=== PATIENT | male | born 1990 | race Caucasian/White ===

== ENCOUNTER 2017-08-22 10:32 | Emergency (ER) | payer MEDICAID, OTHER ==
[~2017-08-22] VITALS: Ht 185.4 cm; Wt 98.9 kg
[2017-08-22 10:38] VITALS: BP_SYST 119
[2017-08-22 11:25] LABS: BILIRUBIN,URINE 1+ (NEGATIVE); BLOOD, URINE NEGATIVE (NEGATIVE); CLARITY/URINE CLEAR (CLEAR); COLOR,URINE YELLOW (YELLOW); GLUCOSE,URINE NEGATIVE (NEGATIVE); KETONES,URINE 1+ (NEGATIVE); LEUKOCYTE ESTERASE ,URINE NEGATIVE (NEGATIVE); NITRITE, URINE NEGATIVE (NEGATIVE); PH,URINE 6.5 (5.0-8.0); PROTEIN URINE TRACE (NEGATIVE)
[2017-08-22 11:28] LABS: BARBITURATE, URINE NEGATIVE (NEG <=200); BENZODIAZEPINE, URINE POSITIVE (NEG <=150); CANNABINOID, URINE POSITIVE (NEG <=50); COCAINE, URINE NEGATIVE (NEG <=150); METHAMPHETAMINES SCREEN,URINE POSITIVE (NEG <=500); OPIATE, URINE NEGATIVE (NEG <=100); PHENCYCLIDINE SCREEN,URINE NEGATIVE (NEG <=25); UR TRICYCLIC ANTIDEPRESSANTS NEGATIVE (NEG <=300); URINE AMPHETAMINE NEGATIVE (NEG <=500); URINE METHADONE NEGATIVE (NEG <=200); URINE OXYCODONE SCREEN NEGATIVE (NEG <=100); URINE PROPOXYPHENE SCREEN NEGATIVE (NEG <=300)
[2017-08-22 11:45] LABS: BACTERIA,URINE FEW /HPF (None Seen); RBC,URINE 0-3 /HPF (0-3); WBC,URINE 0-3 /HPF (0-3)
[2017-08-22 11:46] LABS: MUCUS,URINE 2+ /LPF (None Seen)
[2017-08-22] MEDS ORDERED: KETOROLAC TROMETHAMINE 60 MG/2 ML VIAL IM ONE (14:15)
== END 2017-08-22 12:36 | disposition left against medical advice (07) ==
LOC: SED 10:32
DX: F41.9 Anxiety disorder, unspecified (principal); Z53.21 Procedure and treatment not carried out due to patient leaving prior to being seen by health care provider
CPT/HCPCS: 80307; 81000-TC; 99281

== ENCOUNTER 2018-09-14 15:59 | Emergency (ER) | payer MEDICAID ==
[~2018-09-14] VITALS: Ht 185.4 cm; Wt 106.6 kg
[2018-09-14 16:00] VITALS: BP_SYST 114
[2018-09-14 16:35] VITALS: BP_SYST 116
== END 2018-09-14 16:35 | disposition home or self-care (01) ==
LOC: SED 15:59
DX: L91.8 Other hypertrophic disorders of the skin (principal); J45.909 Unspecified asthma, uncomplicated
CPT/HCPCS: 99281

== ENCOUNTER 2019-04-28 08:27 | Emergency (ER) | payer MEDICAID ==
[~2019-04-28] VITALS: Ht 185.4 cm; Wt 102.1 kg
[2019-04-28 08:39] VITALS: BP_SYST 102
[2019-04-28 09:19] LABS: BASOPHILS # (AUTO) 0.1 K/uL (0.0-0.2); BASOPHILS % (AUTO) 0.7 % (0.0-2.0); EOSINOPHILS # (AUTO) 0.4 K/uL (0.0-0.4); EOSINOPHILS % (AUTO) 5.3 % (0.0-4.0); HEMOGLOBIN 15.1 g/dL (14.0-18.0); LYMPHOCYTES # (AUTO) 1.3 K/uL (1.0-5.5); LYMPHOCYTES % (AUTO) 18.9 % (20.5-51.5); MEAN CORPUSCULAR HEMOGLOBIN 30 pg (27-31); MEAN CORPUSCULAR HGB CONC 34 % (32-36); MEAN CORPUSCULAR VOLUME 88 fL (79.0-98.0); MONOCYTES # (AUTO) 0.7 K/uL (0.0-1.0); MONOCYTES % (AUTO) 10.5 % (1.7-9.3); NEUTROPHILS # (AUTO) 4.6 K/uL (1.8-7.7); NEUTROPHILS % (AUTO) 64.6 % (40.0-70.0); PLATELET COUNT (AUTO) 271 K/uL (130-430); RED BLOOD CELL COUNT(AUTO) 5.03 MIL/uL (4.2-6.2); RED CELL DISTRIBUTION WIDTH 13.4 % (9.0-15.0); WHITE BLOOD COUNT (AUTO) 7.1 K/uL (4.8-10.8)
[2019-04-28 09:36] LABS: CALCIUM 8.6 mg/dL (8.4-11.0); CREATININE 0.81 mg/dL (0.55-1.30); POTASSIUM 3.5 mmol/L (3.5-5.1)
[2019-04-28 09:40] LABS: ALBUMIN 3.7 g/dL (3.4-4.8); C-REACTIVE PROTEIN QUANT 0.5 mg/dL (0-0.5); PROTHROMBIN TIME 10.2 SECS (9.5-12.5); TOTAL BILIRUBIN 0.6 mg/dL (0.0-1.0); URIC ACID 6.1 mg/dL (2.4-7.0)
[2019-04-28 10:14] VITALS: BP_SYST 102
== END 2019-04-28 10:10 | disposition home or self-care (01) ==
LOC: SED 08:27
DX: S60.221A Contusion of right hand, initial encounter (principal); B00.89 Other herpesviral infection; J45.909 Unspecified asthma, uncomplicated; W18.40XA Slipping, tripping and stumbling without falling, unspecified, initial encounter; Y93.89 Activity, other specified; Y92.89 Other specified places as the place of occurrence of the external cause; Y99.8 Other external cause status
CPT/HCPCS: 36415; 80053; 84550-TC; 85025; 85610-TC; 85730-TC; 86140; 99284

== ENCOUNTER 2019-07-11 07:25 | Emergency (ER) | payer MEDICAID ==
[~2019-07-11] VITALS: Ht 185.4 cm; Wt 108.9 kg
[2019-07-11 07:25] VITALS: BP_SYST 120
--- NOTE | 2019-07-11 07:25 | NUR ---
BROUGHT BACK TO BED #8 AND TRIAGED. REPORT GIVEN TO LILI
--- NOTE | 2019-07-11 07:38 | NUR ---
ER Dr. Lopez at bedside examining patient.
--- NOTE | 2019-07-11 07:40 | NUR ---
Patient presented to ER with L:eft Knee pain. Patient A&Ox4, ambulatory to ER, afebrile, pain10/10, denies N/V/D at this time. Patient states yesterday while pt was at work a box fell on left knee. This am. Patient states he aníbal up screaming in pain with nausea and emesis x1 prompting ER visit. Patient states he has a hx with left memiscus tear and left achilles tear.
[2019-07-11] MEDS ORDERED: KETOROLAC TROMETHAMINE 60 MG/2 ML VIAL IM ONE (07:45)
--- NOTE | 2019-07-11 07:49 | NUR ---
Patient to Radiology with staff via wheelchair.
[2019-07-11 09:13] VITALS: BP_SYST 120
--- NOTE | 2019-07-11 09:13 | NUR ---
Patient given written and verbal discharge instructions and verbalizes understanding. ER MD discussed with patient the results and treatment provided. Patient in stable condition. ID arm band removed. Rx of zofran, tramadol, motrin given. Patient educated on pain management and to follow up with PMD. Pain Scale 4/10 tolerable for pt. Opportunity for questions provided and answered. Medication side effect fact sheet provided.
[2019-07-11] MEDS ORDERED: ALBUTEROL SULFATE 0.083% 2.5 MG/3 ML VIAL.NEB INH ONE (14:40)
[2019-07-11] MEDS ORDERED: IPRATROPIUM BROM 0.5 MG/2.5 ML VIAL.NEB (ATROVENT) INH ONE (14:41)
== END 2019-07-11 09:13 | disposition home or self-care (01) ==
LOC: SED 07:25
DX: M25.562 Pain in left knee (principal); J45.909 Unspecified asthma, uncomplicated; W20.8XXA Other cause of strike by thrown, projected or falling object, initial encounter; Y93.89 Activity, other specified; Y92.69 Other specified industrial and construction area as the place of occurrence of the external cause; Y99.8 Other external cause status
CPT/HCPCS: 29505; 73564; 96372; 99283; J1885; J7613

== ENCOUNTER 2022-04-21 17:28 | Emergency (ER) | payer MEDICAID ==
[~2022-04-21] VITALS: Ht 185.4 cm; Wt 108.9 kg
[2022-04-21 17:39] VITALS: BP_SYST 106
[2022-04-21] MEDS ORDERED: DIPH-TET-PERTUS Vaccine 0.5 ML VIAL (ADACEL) I.M. ONE (18:30)
[2022-04-21] MEDS ORDERED: LIDOCAINE 1% 10 MG/ML, 20 ML MDV INJ ONE (18:30)
[2022-04-21] MEDS ORDERED: BACITRACIN 1 GM OINT TP ONE (18:30)
[2022-04-21 19:45] VITALS: BP_SYST 118
== END 2022-04-21 19:45 | disposition home or self-care (01) ==
LOC: SED 17:28
DX: S61.216A Laceration without foreign body of right little finger without damage to nail, initial encounter (principal); S61.218A Laceration without foreign body of other finger without damage to nail, initial encounter; S61.212A Laceration without foreign body of right middle finger without damage to nail, initial encounter; J45.909 Unspecified asthma, uncomplicated; W23.1XXA Caught, crushed, jammed, or pinched between stationary objects, initial encounter; Y93.89 Activity, other specified; Y92.89 Other specified places as the place of occurrence of the external cause; Y99.8 Other external cause status
CPT/HCPCS: 90715; 99283

== ENCOUNTER 2023-06-26 09:10 | Emergency (ER) | payer MEDICAID ==
[~2023-06-26] VITALS: Ht 185.4 cm; Wt 95.3 kg
[2023-06-26 09:29] VITALS: BP_SYST 141; PULSE 81; RESP 20; TEMP 97.6; O2SAT 97
[2023-06-26 11:04] VITALS: BP_SYST 140; PULSE 85; RESP 20; TEMP 97.5; O2SAT 97
[2023-06-26] MEDS ORDERED: TRAM50TA2 PO (11:05)
[2023-06-26] MEDS ORDERED: IBUP-1971 PO (11:05)
== END 2023-06-26 11:21 | disposition home or self-care (01) ==
LOC: SED 09:10
DX: S63.601A Unspecified sprain of right thumb, initial encounter (principal); J45.909 Unspecified asthma, uncomplicated; W22.09XA Striking against other stationary object, initial encounter; Y93.89 Activity, other specified; Y92.89 Other specified places as the place of occurrence of the external cause; Y99.8 Other external cause status
CPT/HCPCS: 73140-TC; 99283

== ENCOUNTER 2024-01-02 11:21 | Emergency (ER) | payer MEDICAID ==
[~2024-01-02] VITALS: Ht 185.4 cm; Wt 111.1 kg
[~2024-01-02 11:21] MED LIST: IBUP-1971 PO; TRAM50TA2 PO
[2024-01-02 11:35] VITALS: BP_SYST 144; PULSE 87; TEMP 97.5; O2SAT 98
[2024-01-02 11:49] LABS: BASOPHILS # (AUTO) 0.1 K/uL (0.0-0.2); BASOPHILS % (AUTO) 0.8 % (0.0-2.0); EOSINOPHILS # (AUTO) 0.4 K/uL (0.0-0.4); EOSINOPHILS % (AUTO) 5.8 % (0.0-4.0); HEMOGLOBIN 15.1 g/dL (14.0-18.0); LYMPHOCYTES # (AUTO) 2.1 K/uL (1.0-5.5); LYMPHOCYTES % (AUTO) 31.4 % (20.5-51.5); MEAN CORPUSCULAR HEMOGLOBIN 31 pg (27-31); MEAN CORPUSCULAR HGB CONC 35 % (32-36); MEAN CORPUSCULAR VOLUME 88 fL (79.0-98.0); MONOCYTES # (AUTO) 0.7 K/uL (0.0-1.0); NEUTROPHILS # (AUTO) 3.5 K/uL (1.8-7.7); PLATELET COUNT (AUTO) 344 K/uL (130-430); RED BLOOD CELL COUNT(AUTO) 4.91 MIL/uL (4.2-6.2); RED CELL DISTRIBUTION WIDTH 13.2 % (9.0-15.0); WHITE BLOOD COUNT (AUTO) 6.8 K/uL (4.8-10.8)
[2024-01-02 11:59] LABS: ANION GAP 9 (5-15); CALCIUM 9.4 mg/dL (8.4-11.0); CARBON DIOXIDE 28 mmol/L (23-29); CHLORIDE 105 mmol/L (98-107); CREATININE 0.99 mg/dL (0.55-1.30); GFR AFRICAN AMERICAN 112 mL/min (>90); GLUCOSE 98 mg/dL (74-106); POTASSIUM 3.7 mmol/L (3.5-5.1); SODIUM SERUM 142 mmol/L (136-145); UREA NITROGEN, BLOOD 18 mg/dL (8-21)
[2024-01-02 12:07] LABS: GFR NON AFRICAN-AMERICAN 93 mL/min (>90)
[2024-01-02] MEDS: IPRATROPIUM/ALBUTEROL SULFATE 3 ML AMPUL.NEB (DUONEB) INH ONE (12:22)
[2024-01-02] MEDS: METHYLPREDNISOLONE SOD SUCC 40 MG/ML VIAL IVP ONE (13:39)
[2024-01-02] MEDS: KETOROLAC TROMETHAMINE 30 MG VIAL IVP ONE (13:42)
[2024-01-02] MEDS ORDERED: ALBMDI INH (13:48)
[2024-01-02] MEDS ORDERED: PRED20TA PO (13:48)
[2024-01-02] MEDS ORDERED: IBUP-1969 PO (13:48)
[2024-01-02 14:22] VITALS: BP_SYST 144; PULSE 87; TEMP 97.5; O2SAT 98
== END 2024-01-02 14:21 | disposition home or self-care (01) ==
LOC: SED 11:21
DX: J45.901 Unspecified asthma with (acute) exacerbation (principal); R07.89 Other chest pain; R35.0 Frequency of micturition; R39.15 Urgency of urination; Z79.899 Other long term (current) drug therapy
CPT/HCPCS: 99285; 96374; 71046; 96375; 80048; 83880; 85025; 84484; 36415; 93005; 94640; 94760; J1885; J1030

== ENCOUNTER 2024-01-11 13:46 | Emergency (ER) | payer MEDICAID ==
[~2024-01-11] VITALS: Ht 185.4 cm; Wt 111.1 kg
[2024-01-11 13:46] VITALS: BP_SYST 138; PULSE 86; RESP 18; TEMP 97.3; O2SAT 98
[~2024-01-11 13:46] MED LIST changes: +ALBMDI INH; +IBUP-1969 PO; +PRED20TA PO
[2024-01-11] MEDS: KETOROLAC TROMETHAMINE 30 MG VIAL IVP ONE (15:08)
[2024-01-11 15:09] LABS: ABG O2 SAT% ESTIMATE 97.1 % (94.0-100.0); BLOOD GAS BASE EXCESS -0.2 mmol/L (-3.0-3.0); BLOOD GAS HCO3 23.7 mmol/L (21.0-27.0); BLOOD GAS PCO2 36.8 mmHg (32.0-45.0); BLOOD GAS PH 7.427 (7.350-7.450); BLOOD GAS PO2 89.6 mmHg (75.0-100.0)
[2024-01-11] MEDS: NACL 0.9% 1,000 ML IV ONE (15:10)
[2024-01-11 15:11] LABS: ALLEN'S TEST POSITIVE (P)
[2024-01-11 15:15] LABS: BASOPHILS # (AUTO) 0.1 K/uL (0.0-0.2); BASOPHILS % (AUTO) 0.8 % (0.0-2.0); EOSINOPHILS # (AUTO) 0.3 K/uL (0.0-0.4); HEMATOCRIT 41.7 % (36-54); HEMOGLOBIN 14.7 g/dL (14.0-18.0); LYMPHOCYTES # (AUTO) 2.8 K/uL (1.0-5.5); LYMPHOCYTES % (AUTO) 26.8 % (20.5-51.5); MEAN CORPUSCULAR HEMOGLOBIN 31 pg (27-31); MEAN CORPUSCULAR HGB CONC 35 % (32-36); MEAN CORPUSCULAR VOLUME 88 fL (79.0-98.0); MONOCYTES # (AUTO) 0.9 K/uL (0.0-1.0); MONOCYTES % (AUTO) 8.3 % (1.7-9.3); NEUTROPHILS # (AUTO) 6.4 K/uL (1.8-7.7); NEUTROPHILS % (AUTO) 61.1 % (40.0-70.0); PLATELET COUNT (AUTO) 345 K/uL (130-430); RED BLOOD CELL COUNT(AUTO) 4.75 MIL/uL (4.2-6.2); RED CELL DISTRIBUTION WIDTH 13.6 % (9.0-15.0); WHITE BLOOD COUNT (AUTO) 10.5 K/uL (4.8-10.8)
[2024-01-11 15:35] LABS: ANION GAP 7 (5-15); CALCIUM 8.6 mg/dL (8.4-11.0); CARBON DIOXIDE 26 mmol/L (23-29); CHLORIDE 108 mmol/L (98-107); CREATININE 0.81 mg/dL (0.55-1.30); GFR AFRICAN AMERICAN 141 mL/min (>90); GFR NON AFRICAN-AMERICAN 117 mL/min (>90); GLUCOSE 83 mg/dL (74-106); POTASSIUM 3.8 mmol/L (3.5-5.1); SODIUM SERUM 141 mmol/L (136-145); UREA NITROGEN, BLOOD 13 mg/dL (8-21)
[2024-01-11 15:40] LABS: ALCOHOL, BLOOD < 3 mg/dL (<10)
[2024-01-11 16:47] LABS: BARBITURATE, URINE NEGATIVE (NEG <=200); BENZODIAZEPINE, URINE NEGATIVE (NEG <=150); CANNABINOID, URINE NEGATIVE (NEG <=50); COCAINE, URINE NEGATIVE (NEG <=150); METHAMPHETAMINES SCREEN,URINE NEGATIVE (NEG <=500); OPIATE, URINE NEGATIVE (NEG <=100); PHENCYCLIDINE SCREEN,URINE NEGATIVE (NEG <=25); UR TRICYCLIC ANTIDEPRESSANTS NEGATIVE (NEG <=300); URINE AMPHETAMINE NEGATIVE (NEG <=500); URINE METHADONE NEGATIVE (NEG <=200); URINE OXYCODONE SCREEN NEGATIVE (NEG <=100)
[2024-01-11 16:51] LABS: INFLUENZA TYPE A Negative (NEGATIVE); INFLUENZA TYPE B NEGATIVE (NEGATIVE)
[2024-01-11 17:39] VITALS: BP_SYST 111; PULSE 78; RESP 16; TEMP 97.4; O2SAT 98
== END 2024-01-11 17:39 | disposition home or self-care (01) ==
LOC: SED 13:46
DX: R07.89 Other chest pain (principal); J45.909 Unspecified asthma, uncomplicated; J44.9 Chronic obstructive pulmonary disease, unspecified; E86.0 Dehydration; E11.9 Type 2 diabetes mellitus without complications; F15.90 Other stimulant use, unspecified, uncomplicated; K21.9 Gastro-esophageal reflux disease without esophagitis; Z95.0 Presence of cardiac pacemaker; Z79.899 Other long term (current) drug therapy; Z20.822 Contact with and (suspected) exposure to COVID-19
CPT/HCPCS: 99285; 96374; 71045; 96361; 87426; 80307; 80048; 83880; 85025; 84484; 36415; 93005; 36600; 82803; 87804 ×2; G0482; J1885; J7030

== ENCOUNTER 2024-04-08 14:43 | Emergency (ER) | payer MEDICAID ==
[~2024-04-08] VITALS: Ht 185.4 cm; Wt 111.1 kg
[2024-04-08 14:45] VITALS: BP_SYST 123; PULSE 65; RESP 18; TEMP 97.5; O2SAT 98
[2024-04-08] MEDS ORDERED: HYDR-3917 PO (15:44)
[2024-04-08] MEDS ORDERED: IBUP-1969 PO (15:44)
[2024-04-08 15:54] VITALS: BP_SYST 123; PULSE 65; RESP 18; TEMP 97.5; O2SAT 98
== END 2024-04-08 16:27 | disposition home or self-care (01) ==
LOC: SED 14:43
DX: S83.92XA Sprain of unspecified site of left knee, initial encounter (principal); J45.909 Unspecified asthma, uncomplicated; Z88.5 Allergy status to narcotic agent; W22.8XXA Striking against or struck by other objects, initial encounter; Y93.89 Activity, other specified; Y92.89 Other specified places as the place of occurrence of the external cause; Y99.8 Other external cause status
CPT/HCPCS: 73564; 99283